=== PATIENT | female | born 1960 | race African-American/Black ===

== ENCOUNTER 2020-05-07 01:54 | Outpatient (CLI) | payer OTHER, SELFPAY ==
[2020-05-07 19:02] LABS: SARS-CoV-2 RNA PCR Negative
== END 2020-05-07 01:55 | disposition home or self-care (01) ==
LOC: ANHCOVIDDT 01:54
PROVIDERS: PCP Internal Medicine; Visit Provider Plastic Surgery
DX: Z01.812 Encounter for preprocedural laboratory examination (principal); Z20.828 Contact with and (suspected) exposure to other viral communicable diseases
CPT/HCPCS: 87635; C9803; U0003

== ENCOUNTER 2020-05-09 01:18 | Day surgery (SDC) | payer OTHER, SELFPAY ==
[2020-04-25 10:56] VITALS: BMI 28.1
--- NOTE | 2020-05-09 06:32 | WPDANESEPPF ---
Anes - Initial Pre Proc Eval Procedure: Operation Date: 05/09/20 07:30 Proposed Procedures p Excision Of Two Enlarged Lipomas Right Anterior Thigh - Gerardo Zapata MD Date/Time: 05/09/20 06:32 Surgeon: Gerardo Zapata MD Pre Op Diagnosis: Subcutaneous Mass x 2 Right Upper Thigh Patient Data Age: 60 Gender: F Height: 5 ft 2 in Weight: 69.85 kg Allergies Allergy/AdvReac Type Severity Reaction Status Date / Time No Known Allergies Allergy Verified 05/09/20 06:12 Home Medications Medication Instructions Recorded Confirmed Type amlodipine 10 mg PO DAILY 04/25/20 05/09/20 History diphenhydramine HCl [Allergy 25 mg PO HS 04/25/20 05/09/20 History (diphenhydramine)] hydrochlorothiazide 25 mg PO DAILY 04/25/20 05/09/20 History Patient hx anesthesia problems: none Family hx anesthesia problems: none PMFSH Past Medical History Medical History CVA (cerebral vascular accident) Hypertension Smoker Tobacco abuse Social History Social History Years smoked: 47 Smoking status: Current every day smoker Tobacco type: cigarettes Alcohol intake: current Drinks per week: 12 Anes - Eval Final PreProcedure Day of Procedure 05/09/20 06:32 Patient weight: overweight Heart: regular rate and rhythm Lungs: decreased breath sounds Airway: Mallampati scale class II Neurological: alert and oriented Last oral intake: >/= 8 hours ASA classification: III Emergent: no Anesthetic plan: proceed Anesthesia type and monitoring: general GIVS and standard monitoring Informed Consent: The patient's anesthetic plan and its attendant risks and benefits were discussed with the patient/family/POA. Questions were solicited and answers provided to the satisfaction of the patient/family/POA.
[2020-05-09] MEDS: LACTATED RINGERS 1,000 ML 30 ML IV CONT (06:43)
[2020-05-09 06:50] VITALS: BP 152/82; PULSE 80; RESP 16; TEMP 36.3; O2SAT 98
--- NOTE | 2020-05-09 07:03 | WPDHPUPDATE1 ---
History and Physical Update Update Date/Time: 05/09/20 07:03 History and Physical has been reviewed, including an updated exam of the patient. There are NO changes in the patient's condition. Risks, benefits, and alternatives have been discussed and questions answered. Patient agrees to proceed with procedure.
[2020-05-09] MEDS: LIDO 1%/EPINEPHRINE 1:100,000 20 ML VIAL INFILTRATE (07:28)
[2020-05-09 07:58] VITALS: BP 126/72; PULSE 73; RESP 15; O2SAT 94
--- NOTE | 2020-05-09 08:09 | SUR.PHASEII ---
0805; PT RESTING QUIETLY. DENIES PAIN.
--- NOTE | 2020-05-09 08:16 | PM.OP ---
Procedure Note - Brief Procedure Note - Brief Date of procedure: 05/09/20 Pre-op diagnosis: Subcutaneous Mass x 2 Right Upper Thigh Post-op diagnosis: same Procedure performed: Excision of lipoma right anterior thigh 9.0 cm with intermediate repair 4.0 cm. Excision of lipoma or right anterior medial thigh 4.0 cm with intermediate repair 3.0 cm. Anesthesia: MAC Surgeon: Gerardo Zapata MD Associate Professor Of Geography: Erika Shin Estimated blood loss (mL): 2 Tourniquet time (min): 0 Drains: No Packing: No Pathology: none sent Complications: No immediate complications Condition: stable Disposition: same day
--- NOTE | 2020-05-09 08:21 | P.OP_ITS ---
Procedure Note - Detailed Date of procedure: 05/09/20 Pre-op diagnosis: Subcutaneous Mass x 2 Right Upper Thigh Post-op diagnosis: same Procedure performed: Excision of 9 cm lipoma of the upper anterior thigh with intermediate repair 4 cm. Excision of 4 cm lipoma of the upper medial thigh with intermediate repair 3 cm Description of procedure: Lipomas were marked on the patient's thigh as she waited in the holding area. She was taken to the operating room placed supine on the operating table. A a time-out was held and confirmed. She was given IV sedation and the thigh was prepped and draped in the usual fashion. Markings were made over the dome of these for incision. Each was infiltrated widely with 1% lidocaine with epinephrine. The larger lipoma was removed 1st this involved incision directly over the top and dissection and to the deep subcutaneous tissue. The pale firm lipomatous tissue was identified and had several extensions. It was taken out by direct digital pressure and sharp dissection neither of these extended onto the deep fascia. The wounds were closed with intradermal 4-0 Monocryl suture and glue. Bandages were taped on and she was discharged from the operating room stable condition. She has instructions in care follow-up. A prescription for hydrocodone was sent to her pharmacy for 7.. Anesthesia: MAC Surgeon: Gerardo Zapata MD Seam [employer]ber: Erika Shin Estimated blood loss (mL): 2 Drains: No Packing: No Pathology: none sent Complications: No immediate complications Condition: stable Disposition: same day
[2020-05-09 08:30] VITALS: BP 119/69; PULSE 72; RESP 16; O2SAT 96
[2020-05-09 09:00] VITALS: BP 136/73; PULSE 68; RESP 16
--- NOTE | 2020-05-09 09:32 | SUR.PHASEII ---
0920; PT AWAKE AND ALERT. DENIES PAIN OR NAUSEA. STATES READY TO GO HOME. MEETS DISCHARGE CRITERIA
== END 2020-05-09 09:48 | disposition home or self-care (01) ==
PROVIDERS: PCP Internal Medicine; Visit Provider Plastic Surgery
PROC: (CPT 27327; principal; 2020-05-09 07:30)
DX: D17.23 Benign lipomatous neoplasm of skin and subcutaneous tissue of right leg (principal); I10 Essential (primary) hypertension; Z86.73 Personal history of transient ischemic attack (TIA), and cerebral infarction without residual deficits; F17.210 Nicotine dependence, cigarettes, uncomplicated
CPT/HCPCS: 27327; 27337; A9270; J2250; J2704; J3010; J7120

== ENCOUNTER 2024-10-31 09:49 | Outpatient (CLI) | payer MEDICARE, MEDICAID, SELFPAY ==
--- NOTE | ~2024-10-31 | CT_ITS ---
EXAMINATION: CT sinus wo con DATE: 10/31/2024 10:22 INDICATION: Chronic sinusitis TECHNIQUE: Computed tomography (CT) of the paranasal sinuses was performed without intravenous contra st. The dose-length product was 301.30 mGy-cm. Automated exposure control and iterative reconstructio n technique were employed. COMPARISON: None FINDINGS: There is mucosal thickening of the sphenoid, maxillary, ethmoid and frontal sinuses. No sig nificant mucoperiosteal reaction. Rightward nasal septal deviation. The ostiomeatal units are occlude d. Mastoids are poorly pneumatized. IMPRESSION: 1. Moderate pansinusitis. Reviewed, dictated and finalized at location B. IMPRESSION: 1. Moderate pansinusitis.
--- OUTSIDE RECORDS SUMMARY | 2024-10-31 10:34 | XMS_ITS | Data Portability ---
Author Organization DIANE MICAHLyly Toscano Address [address] [facility] [place] [address] Care Team Providers Care Belt Weaver Name Role Phone MAKENNA MILLS Primary Care Provider [phone] BENJI BACON [employer] Reducer Machine Assessment No assessment recorded. Plan of Treatment Reminders Order Date Submit Date Provider Last Modified By Organization Details Last Modified Time Details Appointments ANY 15 2024 03:00P M Jia Bonilla MD Not available Not available Not available Lab noninvasi ve colorecta l cancer DNA + occult blood screening , QL, stool 2023 024 [facility] (Cologuard Orders Only), [address], [address], [place], [address], 05/05/2024 20:55:27 CMP, serum or plasma 2023 024 [facility], [address], [address], [place], [address], 05/16/2024 11:24:11 CBC 2023 024 [facility], [address], [address], [place], [address], 05/16/2024 11:24:13 TSH, ultra-sen sitive, serum 2023 024 [facility], [address], [address], [place], [address], 05/16/2024 11:24:12 lipid panel, serum 2023 024 [facility], [address] [place] [address], [address], [place], [address], 05/16/2024 11:24:09 albumin/c reatinine , mass ratio, urine 2023 024 [facility], [address] [place] [address], [address], [place], [address], 05/16/2024 11:24:08 vitamin B12 + folate, serum or blood 2022 023 [facility], [address] [place] [address], [address], [place], [address], 02/03/2023 08:27:07 Referral None recorded. Procedures None recorded. Surgeries None recorded. Imaging MAMMO, screening , digital, bilateral 2023 024 [facility], [address] [place] [address] 162, [place], [address], 10/13/2024 11:02:35 Medication Orders omeprazol e 40 mg capsule,d elayed release 2023 024 [facility], [address] [place] [address], [id number], 04/17/2024 15:56:06 clotrimaz ole 1 % topical cream 2023 024 [facility], [address] [place] [address], [id number], 04/17/2024 15:50:59 gabapenti n 300 mg capsule 2023 024 [facility], [address] [place] [address], [id number], 08/09/2024 16:08:43 ibuprofen 800 mg tablet 2023 024 [facility], [address] [place] [address], [id number], 04/18/2024 11:04:15 amlodipin e 5 mg tablet 2023 024 [facility], [address] [place] [address], [id number], 08/09/2024 16:08:41 hydrochlo rothiazid e 25 mg tablet 2023 024 [facility], [address] [place] [address], [id number], 08/09/2024 16:08:42 ketorolac 10 mg tablet 2023 024 [facility], [address] [place] [address], [id number], 04/17/2024 14:25:20 ketoconaz ole 2 % topical cream 2023 024 [facility], [address] [place] [address], [id number], 04/17/2024 14:40:40 gabapenti n 300 mg capsule 2022 023 [facility], [address] [place] [address], [id number], 08/11/2023 15:33:05 Calcium 600 + D(3) 600 mg-5 mcg (200 unit) tablet 2022 023 [facility], [address] [place] [address], [id number], 04/17/2024 14:36:24 lidocaine 4 % topical cream 2022 023 [facility], [address] [place] [address], [id number], 04/17/2024 14:37:01 meloxicam 15 mg tablet 2022 023 [facility], [address] [place] [address], [id number], 04/17/2024 14:37:06 diclofena c 1 % topical gel 2022 023 [facility], [address] [place] [address], [id number], 04/17/2024 14:36:49 amlodipin e 5 mg tablet 2022 023 [facility], [address] [place] [address], [id number], 08/11/2023 15:33:24 hydrochlo rothiazid e 25 mg tablet 2022 023 [facility], [address] [place] [address], [id number], 08/11/2023 15:33:26 Patient TargetsNo targets recorded. Patient Instructions Encounter Date Encounter Id Patient Instructions Last Modified By Organization Details Last Modified Time 09/24/2022 [id number] A healthy lifestyle: care instructions [facility] Not available 09/24/2022 11:02:31 01/12/2023 [id number] Quitting Tobacco : Care Instructions [facility] Not available 01/12/2023 16:43:35 05/17/2023 [id number] deciding about using medicines to quit smoking [facility] Not available 05/17/2023 17:01:06 Quitting Tobacco : Care Instructions si Not available 05/17/2023 17:01:06 Acute Sinusitis: Care Instructions sieh Not available 05/17/2023 17:01:06 learning about high blood pressure si Not available 05/17/2023 17:01:06 08/18/2023 [id number] athlete's foot: care instructions si Not available 08/18/2023 18:08:43 04/17/2024 [id number] A healthy lifestyle: care instructions [facility] Not available 04/17/2024 15:25:09 Reason for Referral None Reported. Results Created Date Observation Date Name Description Value Unit Range Abnormal Flag Note LastModifiedBy Organization Detail LastModifiedTime 02/03/2002/03/2023 VITAM IN B12 AND FOLAT E vitamin B12 630 pg/mL 232-12 45 Not Available [facility] ([facility]) [address] [facility], [place], [address], 02/03/2023 08:27:07 02/03/20 23 02/03/2023 VITAM IN B12 AND FOLAT E folate (folic acid), serum 6.0 NG/mL >3.0 A serum folat e donal ntrat ion of less than 3.1 ng/mL is consi dered to repre sent clini palma defic iency . Not Available [facility] ([facility]) [address] [facility], [place], [address], 02/03/2023 08:27:07 04/30/20 24 04/30/2024 COLOG UARD cologuard result reportable NEGATI VE negati ve normal NEGAT ROSALIA TEST RESUL T. A negat rosalia Colog uard resul t indic ates a low likel ihood that a color ectal cance r (CRC) or advan patricio adeno ma (omid omato us polyp s with more advan patricio pre-m align ant featu res) is prese nt. The chanc e that a perso n with a negat rosalia Colog uard test has a color ectal cance r is less than 1 in 1500 (nega tive predi ctive value >99.9 %) or has an advan patricio adeno ma is less than 5.3% (nega tive predi ctive value 94.7% ). These data are based on a prosp ectiv e cross -sect ional study of 10,00 0 indiv idual s at [place] risk for color ectal cance r who were scree tee with both Colog uard and colon oscop y. (Les Marie al, N Engl J Med 2014; 370(1 4):12 86-12 97) The keysha l value (refe rence range ) for this assay is negat rosalia. COLOG UARD RE-SC REENI NG RECOM MENDA TION: Perio dic color ectal cance r scree jagdish is an impor tant part of preve ntive healt hcare for asymp tomat ic indiv idual s at [facility] risk for color ectal cance r. Follo wing a negat rosalia Colog uard resul t, the Ameri can Cance r Socie ty and U.S. Multi -Soci ety Task Force scree jagdish guide lines recom mend a Colog uard re-sc reetejal ng inter jennifer of 3 years . Refer ences : Ameri can Cance r Socie ty Guide line for Color ectal Cance r Scree jagdish: https ://alireza w.can cer.o rg/ca ncer/ colon -rect al-ca ncer/ detec tion- diagn osis- stagi ng/ac s-rec ommen datio ns.ht ml.; Grant BRODY, Christen FAGAN, Erika VALENCIA, Color ectal Cance r Scree jagdish: Recom menda tions for Physi cians and Patie nts from the U.S. Multi -Soci ety Task Force on Color ectal Cance r Scree jagdish , Am J Gastr oente rolog y 2017; 112:1 016-1 030. TEST DESCR IPTIO N: [place] site algor ithmi c ira sis of stool DNA-b iojulia kers with hemog lobin immun oassa y. Quant itati ve value s of indiv idual bioma rkers are not repor table and are not assoc iated with indiv idual bioma rker resul t refer ence range s. Colog uard is inten ded for color ectal cance r scree jagdish of adult s of eithe r sex, 45 years or older , who are at [facility] for color ectal cance r (CRC) . Colog uard has been appro karen for use by the U.S. FDA. The perfo rmanc e of Colog uard was estab lishe d in a cross secti onal study of [facility] adult s aged 50-84 . Colog uard perfo rmanc e in patie nts ages 45 to 49 years was estim ated by sub-g roup ira sis of near- age group s. Colon oscop ies perfo rmed for a posit rosalia resul t may find as the most clini dalton signi fican t lesio n: color ectal cance r [4.0% ], advan patricio adeno ma (incl uding sessi le darlin min polyp s great er than or equal to 1cm diame ter) [20%] or non- advan patricio adeno ma [31%] ; or no color ectal neopl randall [45%] . These estim ates are deriv ed from a prosp ectiv e cross -sect ional scree jagdish study of 0 indiv idual s at [facility] risk for color ectal cance r who were scree tee with both Colog uard and colon oscop y. (Les Marie al, N Engl J Med 2014; 370(1 4):12 86-12 97.) Colog uard may produ ce a false negat rosalia or false posit rosalia resul t (no color ectal cance r or preca ncero us polyp prese nt at colon oscop y follo w up). A negat rosalia Colog uard test resul t does not guara ntee the absen ce of CRC or advan patricio adeno ma (pre- cance r). The curre nt Colog uard scree jagdish inter jennifer is every 3 years . (Amer ican Cance r Socie ty and U.S. Multi -Soci ety Task Force ). Colog uard perfo rmanc e data in a 0 patie nt pivot al study using colon oscop y as the refer ence metho d can be acces sed at the follo wing locat ion: www.e xactl abs.c om/re jesus . Addit ional descr iptio n of the Colog uard test proce ss, warni ngs and preca ution s can be found at www.c adi hamd.c om. Not Available [facility] (Cologuard Orders Only) [address], [place], [address], 05/05/2024 20:55:27 05/15/2005/16/2024 ALBUM IN/CR EATIN INE RATIO ,URIN E creatinine, urine 215.1 mg/dL notest ab. Not Available [facility] ([facility]) [address] [facility], [place], [address], 05/16/2024 11:24:08 05/15/2005/16/2024 ALBUM IN/CR EATIN INE RATIO ,URIN E albumin, urine 13.4 ug/mL notest ab. Not Available [facility] ([facility]) [address] [facility], [place], [address], 05/16/2024 11:24:08 05/15/2005/16/2024 ALBUM IN/CR EATIN INE RATIO ,URIN E alb/creat ratio 6 mg/g_ creat 0-29 Keysha l: 0 - 29 Moder ately incre ased: 30 - 300 Sever myah incre ased: >300 Not Available [facility] ([facility]) [address] [place], [address], 05/16/2024 11:24:08 05/15/2005/16/2024 LIPID PANEL cholesterol, total 194 mg/dL 100-19 9 Not Available [facility] ([facility]) [address] [place], [address], 05/16/2024 11:24:09 05/15/2005/16/2024 LIPID PANEL triglyceride s 259 mg/dL 0-149 above high normal Not Available [facility] ([facility]) [address] [place], [address], 05/16/2024 11:24:09 05/15/2005/16/2024 LIPID PANEL HDL cholesterol 51 mg/dL >39 Not Available [facility]) [address] [place], [address], 05/16/2024 11:24:09 05/15/2005/16/2024 LIPID PANEL VLDL cholesterol palma 44 mg/dL 5-40 above high normal Not Available [facility] ([facility]) [address] [place], [address], 05/16/2024 11:24:09 05/15/20 24 05/16/2024 LIPID PANEL LDL chol calc ([facility]) 99 mg/dL 0-99 Not Available [facility]) [address] [place], [address], 05/16/2024 11:24:09 05/15/2005/16/2024 COMP. METAB OLIC PANEL (14) glucose 111 mg/dL 70-99 above high normal Not Available [facility] ([facility]) [address] [facility], [place], [address], 05/16/2024 11:24:11 05/15/2005/16/2024 COMP. METAB OLIC PANEL (14) BUN 12 mg/dL 8-27 Not Available [facility] ([facility]) [address] [place], [address], 05/16/2024 11:24:11 05/15/2005/16/2024 COMP. METAB OLIC PANEL (14) creatinine 0.70 mg/dL 0.57-1 .00 Not Available [facility] ([facility]) [address] [place], [address], 05/16/2024 11:24:11 05/15/2005/16/2024 COMP. METAB OLIC PANEL (14) eGFR 96 mL/mi n/1.7 3 >59 Not Available [facility] ([facility]) [address] [place], [address], 05/16/2024 11:24:11 05/15/20 24 05/16/2024 COMP. METAB OLIC PANEL (14) BUN/creatini ne ratio 17 12-28 Not Available [facility]) [address] [place], [address], 05/16/2024 11:24:11 05/15/2005/16/2024 COMP. METAB OLIC PANEL (14) sodium 143 mmol/ L 134-14 4 Not Available [facility] ([facility]) [address], [place], [address], 05/16/2024 11:24:11 05/15/2005/16/2024 COMP. METAB OLIC PANEL (14) potassium 4.0 mmol/ L 3.5-5. 2 Not Available [facility] ([facility]) [address], [place], [address], 05/16/2024 11:24:11 05/15/2005/16/2024 COMP. METAB OLIC PANEL (14) chloride 104 mmol/ L 96-106 Not Available [facility] ([facility]) [address], [place], [address], 05/16/2024 11:24:11 05/15/2005/16/2024 COMP. METAB OLIC PANEL (14) carbon dioxide, total 24 mmol/ L Not Available [facility] ([facility]) [address] [facility], [place], [address], 05/16/2024 11:24:11 05/15/2005/16/2024 COMP. METAB OLIC PANEL (14) calcium 10.1 mg/dL 8.7-10 .3 Not Available [facility] ([facility]) [address] [facility] [place] [facility] [place], [address], 05/16/2024 11:24:11 05/15/2005/16/2024 COMP. METAB OLIC PANEL (14) protein, total 7.4 g/dL 6.0-8. 5 Not Available [facility] ([facility]) [address] [facility] [place] [facility] [place], [address], 05/16/2024 11:24:11 05/15/2005/16/2024 COMP. METAB OLIC PANEL (14) albumin 4.1 g/dL 3.9-4. 9 Not Available [facility] ([facility]) [address] [facility], [place], [address], 05/16/2024 11:24:11 05/15/20 24 05/16/2024 COMP. METAB OLIC PANEL (14) globulin, total 3.3 g/dL 1.5-4. 5 Not Available [facility] ([facility]) [address] [facility], [place], [address], 05/16/2024 11:24:11 05/15/2005/16/2024 COMP. METAB OLIC PANEL (14) bilirubin, total 0.4 mg/dL 0.0-1. 2 Not Available [facility] ([facility]) [address] [facility], [place], [address], 05/16/2024 11:24:11 05/15/2005/16/2024 COMP. METAB OLIC PANEL (14) alkaline phosphatase 101 IU/L 44-121 Not Available [facility]) [address] [facility], [place], [address], 05/16/2024 11:24:11 05/15/2005/16/2024 COMP. METAB OLIC PANEL (14) AST (SGOT) 18 IU/L 0-40 Not Available [facility] ([facility]) [address] [facility], [place], [address], 05/16/2024 11:24:11 05/15/2005/16/2024 COMP. METAB OLIC PANEL (14) ALT (SGPT) 23 IU/L 0-32 Not Available [facility] ([facility]) [address] [facility], [place], [address], 05/16/2024 11:24:11 05/15/2005/16/2024 TSH RFX ON ABNOR MAL TO FREE T4 TSH 2.260 uIU/m L 0.450- 4.500 Not Available [facility] ([facility]) [address] [facility], [place], [address], 05/16/2024 11:24:12 05/15/2005/16/2024 CBC, PLATE LET, NO DIFFE RENTI AL WBC 6.3 x10e3 /uL 3.4-10 .8 Not Available [facility] ([facility]) [address] [facility], [place], [address], 05/16/2024 11:24:13 05/15/2005/16/2024 CBC, PLATE LET, NO DIFFE RENTI AL RBC 4.90 x10e6 /uL 3.77-5 .28 Not Available [facility] ([facility]) [address] [facility], [place], [address], 05/16/2024 11:24:13 05/15/2005/16/2024 CBC, PLATE LET, NO DIFFE RENTI AL hemoglobin 14.7 g/dL 11.1-1 5.9 Not Available [facility] ([facility]) [address] [facility], [place], [address], 05/16/2024 11:24:13 05/15/2005/16/2024 CBC, PLATE LET, NO DIFFE RENTI AL hematocrit 45.8 % 34.0-4 6.6 Not Available [facility] ([facility]) [address] [facility], [place], [address], 05/16/2024 11:24:13 05/15/2005/16/2024 CBC, PLATE LET, NO DIFFE RENTI AL MCV 94 fL 79-97 Not Available [facility] ([facility]) [address] [facility], [place], [address], 05/16/2024 11:24:13 10/28/20 24 05/16/2024 CBC, PLATE LET, NO DIFFE RENTI AL MCH 30.0 pg 26.6-3 3.0 Not Available [facility] ([facility]) [address] [facility], [place], [address], 05/16/2024 11:24:13 05/15/2005/16/2024 CBC, PLATE LET, NO DIFFE RENTI AL MCHC 32.1 g/dL 31.5-3 5.7 Not Available [facility] ([facility]) [address] [facility], [place], [address], 05/16/2024 11:24:13 05/15/2005/16/2024 CBC, PLATE LET, NO DIFFE RENTI AL RDW 13.8 % 11.7-1 5.4 Not Available [facility] ([facility]) [address] [facility], [place], [address], 05/16/2024 11:24:13 05/15/2005/16/2024 CBC, PLATE LET, NO DIFFE RENTI AL platelets 279 x10e3 /uL 150-45 0 Not Available [facility] ([facility]) [address] [facility], [place], [address], 05/16/2024 11:24:13 Result Notes None recorded. Problems Name Problem SNOMED Code Status Onset Date Resolution Date Notes Provider Name and Address Organization Details Recorded Time Degeneration of lumbar intervertebral disc 33993509 Active 2020 [facility] Attn: Ricky gann,[address] [place], [address], [place] [facility] 1 08:44:41 Essential hypertension 40429631 Active Makenna Mills MD Attn: Ricky gann,[address] [place], [address] [facility] 6 12:12:04 Chronic obstructive pulmonary disease 78974119 Active Makenna Mills MD Attn: Ricky gann,[address] [place], [address], [place] [facility] 6 12:12:04 Tobacco dependence syndrome 50599494 Active Makenna Mills MD Attn: Ricky gann,[address] [place], [address] [facility] 6 12:12:04 Tinea pedis 6789953 Active Dorothy Sauceda RN null, [place] [facility] 5 17:32:48 Alcoholism 3041296 Active Makenna Mills MD Attn: Ricky g,[address] [place], [address], [place] [facility] 6 12:12:04 Vitamin D deficiency 02774685 Active Makenna Mills MD Attn: Ricky gann,[address] [place], [address] [facility] 6 11:36:50 Menopausal and postmenopausal disorders 993175379 Active Makenna Mills MD Attn: Ricky gann,[address] [place], [address], [place] [facility] 5 16:19:20 Chronic sinusitis 79632303 Active Makenna Mills MD Attn: Ricky gann,[address] [place], [address] [facility] 6 11:36:50 Multiple lumps 253424905 Active Makenna Mills MD Attn: Ricky gann,[address] [place], [address], [place] [facility] 6 14:51:34 Acid reflux 003863865 Active Makenna Mills MD Attn: Ricky gann,[address] [place], [address] [facility] 6 12:12:04 Injury of shoulder region 583943842 Active Makenna Mills MD Attn: Ricky gann,[address] [place], [address], [place] [facility] 6 12:12:04 Problem Notes None recorded. Procedures Surgical History Date Name Laterality Status Provider Name and Address Organization Details Recorded Time 11/24/19 19 Intralesional Kenalog injection completed Amisha Barone [facility] 11/23/2018 11:48:53 Cholecystectomy completed aMssiel Fry MA [facility] 10/26/2019 09:14:13 Tubal Ligation completed Massiel Fry MA [facility] 10/26/2019 09:14:21 Imaging Results None recorded. Procedure Notes None recorded. Medical Equipment None Reported. Allergies No known drug allergies Medications Name Sig Start Date Stop Date Status Note LastModified by Organization Details LastModified Time Prescripti on - Renewal 10/07 completed Not Available Not Available Not Available losartan 50 mg tablet Take 1 tablet every day by oral route as directed for 30 days. 10/07 completed Not Available Not Available Not Available amoxicilli n 500 mg capsule 04/09 completed Not Available Not Available Not Available atorvastat in 40 mg tablet TAKE 1 TABLET BY MOUTH AT BEDTIME TO LOWER CHOLESTE ROL 08/16 completed Not Available Not Available Not Available prednisone 10 mg tablet 09/24 completed Not Available Not Available Not Available gabapentin 600 mg tablet Take 1 tablet 3 times a day by oral route as directed for 30 days. 10/21 completed Not Available Not Available Not Available cefuroxime axetil 250 mg tablet 04/09 completed Not Available Not Available Not Available ibuprofen 800 mg tablet TAKE ONE TABLET BY MOUTH THREE TIMES DAILY, MORNING, MIDDAY & IN THE EVENING WITH FOOD NEEDED FOR PAIN active Not Available Not Available No t Available hydrocodon e 5 mg-acetami nophen 325 mg tablet 09/24 completed Not Available Not Available Not Available meloxicam 15 mg tablet TAKE ONE TABLET BY MOUTH EVERY DAY AFTER A MEAL FOR PAIN 04/17 completed Not Available Not Available Not Available lidocaine 4 % topical cream Apply 1 applicat ion 4 times a day by topical route as directed for 30 days. 04/17 completed Not Available Not Available Not Available metronidaz ole 500 mg tablet TAKE ONE TABLET THREE TIMES DAILY AFTER MEALS FOR 5 DAYS 04/17 completed Not Available Not Available Not Available Aspir-Low 81 mg tablet,del ayed release TAKE 1 TABLET BY MOUTH ONCE DAILY 02/14 completed Not Available Not Available Not Available amlodipine 5 mg tablet TAKE ONE TABLET BY MOUTH EVERY MORNING FOR BLOOD PRESSURE 2024 active Not Available Not Available Not Avai lable ciprofloxa gume 500 mg tablet TAKE ONE TABLET TWICE DAILY AFTER MEALS FOR 5 DAYS 04/17 completed Not Available Not Available Not Available omeprazole 40 mg capsule,de layed release one capsule po q d prn 2023 active Not Available Not Available Not Avai lable triamcinol one acetonide 0.1 % topical cream APPLY A THIN LAYER TO THE AFFECTED AREA(S) BY TOPICAL ROUTE 2 TIMES PER DAY 10/07 completed Not Available Not Available Not Available amoxicilli n 500 mg tablet TAKE ONE TABLET BY MOUTH EVERY 8 HOURS FOR 10 DAYS 04/17 completed Not Available Not Available Not Available baclofen 20 mg tablet Take 1 tablet 4 times a day by oral route as needed for 30 days. 04/18 completed Not Available Not Available Not Available ketorolac 10 mg tablet TAKE ONE TABLET BY MOUTH EVERY 6 HOURS NEEDED FOR 5 DAYS 04/17 completed Not Available Not Available Not Available meloxicam 7.5 mg tablet Take 1 tablet every day by oral route as directed for 30 days. 10/21 completed Not Available Not Available Not Available terbinafin e HCl 250 mg tablet Take 1 tablet every day by oral route as directed for 30 days. 10/21 completed Not Available Not Available Not Available amoxicilli n 875 mg tablet 11/29 completed Not Available Not Available Not Available trazodone 100 mg tablet TAKE 1 TABLET(S ) NEEDED BY MOUTH AT BEDTIME TO AID SLEEP 10/21 completed Not Available Not Available Not Available dicyclomin e 20 mg tablet 08/16 completed Not Available Not Available Not Available baclofen 10 mg tablet TAKE 1 TABLET(S ) 3 TIMES A DAY BY MOUTH AFTER MEALS FOR MUSCLE SPASMS NEEDED. 10/21 completed Not Available Not Available Not Available triamcinol one acetonide 0.1 % topical ointment APPLY A THIN LAYER TO THE AFFECTED AREA(S) BY TOPICAL ROUTE 2 TIMES PER DAY 04/09 completed Not Available Not Available Not Available nystatin 100,000 unit/gram topical cream APPLY TO THE AFFECTED AREA(S) BY TOPICAL ROUTE 2 TIMES PER DAY for 90 days 04/17 completed Not Available Not Available Not Available ranitidine 150 mg tablet TAKE ONE TABLET TWICE A DAY BY MOUTH FOR STOMACH active Not Available Not Available No t Available hydrochlor othiazide 12.5 mg capsule TAKE 1 CAPSULE( S) EVERY DAY BY MOUTH 08/16 completed Not Available Not Available Not Available docusate sodium 100 mg capsule 04/09 completed Not Available Not Available Not Available gabapentin 300 mg capsule TAKE TWO CAPSULES BY MOUTH EVERY NIGHT AT BEDTIME FOR PAIN MANAGEME NT 2024 active Not Available Not Available Not Avai lable omeprazole 20 mg capsule,de layed release Take 1 capsule twice a day by oral route before meals for 30 days. 10/21 completed Not Available Not Available Not Available folic acid 1 mg tablet Take 1 tablet every day by oral route as directed for 90 days. 08/16 completed Not Available Not Available Not Available ranitidine 150 mg capsule Take 1 capsule twice a day by oral route for 30 days. 04/09 completed Not Available Not Available Not Available hydrochlor othiazide 25 mg tablet TAKE ONE TABLET BY MOUTH EVERY MORNING FOR FLUID RETENTIO N 2024 active Not Available Not Available Not Avai lable methylpred nisolone 4 mg tablets in a dose pack Use as directed on package 08/18 completed Not Available Not Available Not Available ketoconazo le 2 % topical cream APPLY TO THE AFFECTED AREA(S) DAILY 04/17 completed Not Available Not Available Not Available betamethas one dipropiona te 0.05 % topical ointment apply to feet and ankles BID x 2 weeks, stop x 2 weeks and use Vaseline . Repeat 04/18 completed Not Available Not Available Not Available fluticason e propionate 50 mcg/actuat ion nasal spray,susp ension SPRAY TWO PUFFS IN EACH NOSTRIL EVERY DAY NEEDED 04/17 completed Not Available Not Available Not Available clotrimazo le 1 % topical cream apply to affected area bid as needed 2023 active Not Available Not Available Not Avai lable naproxen 500 mg tablet TAKE ONE TABLET BY MOUTH TWICE DAILY WITH FOOD 09/24 completed Not Available Not Available Not Available amoxicilli n 875 mg-potassi um clavulanat e 125 mg tablet TAKE ONE TABLET EVERY TWELVE HOURS FOR 10 DAYS 08/18 completed Not Available Not Available Not Available Calcium 600 + D(3) 600 mg-5 mcg (200 unit) tablet Take 2 tablets every day by oral route as directed for 30 days. 04/17 completed Not Available Not Available Not Available Lipitor 02/14 completed One tablet taken at bedtime . Not Available Not Available Not Available calcium 600 mg (as carbonate) -vitamin D3 10 mcg (400 unit) tablet Take 2 tablets every day by oral route as directed for 30 days. 10/21 completed Not Available Not Available Not Available peg 3350 240 gram-elect rolytes 22.72 gram-6.72 g-5.84 g powdr for soln 04/09 completed Not Available Not Available Not Available diclofenac 1 % topical gel APPLY 2 GRAMS TO THE AFFECTED AREA(S) BY TOPICAL ROUTE 4 TIMES PER DAY 04/17 completed Not Available Not Available Not Available Rakel Allergy 60 mg tablet Take 1 tablet(s ) twice a day by oral route for 30 days. 04/09 completed Not Available Not Available Not Available Drysol 20 % topical solution Apply 1 applicat ion every day by topical route for 90 days. 08/16 completed Not Available Not Available Not Available Vitals Date Recorded Body height Body mass index (BMI) Body weight Heart rate Oxygen saturation Oxygen saturation in Arterial blood by Pulse oximetry Systolic blood pressure Diastolic blood pressure Provider Name and Address Organization Details Last Updated DateTime 3 160.02 cm 28.2 kg/m2 22853.6 2 g 63 /min 97 % 97 % 135 mm[Hg] 85 mm[Hg] Jenae Vu MA [place] - [facility] 3 10:13:17 Date Recorded Body height Body mass index (BMI) Body weight Oxygen saturation Oxygen saturation in Arterial blood by Pulse oximetry Heart rate Systolic blood pressure Diastolic blood pressure Provider Name and Address Organization Details Last Updated DateTime 3 160.02 cm 27.7 kg/m2 63884.8 5 g 96 % 96 % 73 /min 152 mm[Hg] 88 mm[Hg] ODELL Uriarte - [facility] 3 15:46:45 Date Recorded Body height Body mass index (BMI) Body weight Heart rate Oxygen saturation Oxygen saturation in Arterial blood by Pulse oximetry Systolic blood pressure Diastolic blood pressure Provider Name and Address Organization Details Last Updated DateTime 3 160.02 cm 27.6 kg/m2 18699.4 1 g 70 /min 98 % 98 % 138 mm[Hg] 78 mm[Hg] Kelly Oliva MA [facility] 3 15:07:40 Date Recorded Body height Body mass index (BMI) Body weight Oxygen saturation Oxygen saturation in Arterial blood by Pulse oximetry Heart rate Systolic blood pressure Diastolic blood pressure Provider Name and Address Organization Details Last Updated DateTime 4 160.02 cm 28.3 kg/m2 48537.7 8 g 97 % 97 % 76 /min 134 mm[Hg] 76 mm[Hg] Veronica Sawyer MA [facility] 4 17:00:02 Date Recorded Body height Body mass index (BMI) Body weight Oxygen saturation Oxygen saturation in Arterial blood by Pulse oximetry Heart rate Systolic blood pressure Diastolic blood pressure Provider Name and Address Organization Details Last Updated DateTime 4 160.02 cm 29.2 kg/m2 76430.7 4 g 98 % 98 % 74 /min 130 mm[Hg] 78 mm[Hg] Cecelia Eng MA [facility] 4 14:38:33 Social History Question Answer Notes LastModified by Organizat ion Details LastModified Time Tobacco Smoking Status Current Some Day Smoker Jenae Vu MA null, [place] - [facility] 01/12/2023 15:45:13 Are You Blind Or Do You Have Difficulty Seeing? No Information not available 08/18/2023 What Is Your Level Of Caffeine Consumption? None Information not available 08/18/2023 Are You Deaf Or Do You Have Serious Difficulty Hearing? No Information not available 08/18/2023 Do You Or Have You Ever Used E-cigarettes Or Vape? Never Used Electronic Cigarettes Information not available 10/26/2019 What Was The Date Of Your Most Recent Tobacco Screening? 04/17/2024 Information not available 04/17/2024 Do You Use Your Seat Belt Or Car Seat Routinely? Yes Information not available 08/18/2023 Do You Or Have You Ever Used Smokeless Tobacco? Never Used Smokeless Tobacco Information not available 10/26/2019 How Much Tobacco Do You Smoke? 1 PPW Information not available 10/26/2019 Has Tobacco Cessation Counseling Been Provided? Yes Information not available 04/17/2024 On What Date Was Tobacco Cessation Counseling Provided? 04/17/2024 Information not available 04/17/2024 How Many Years Have You Smoked Tobacco? 30 [email or web address] Information not available 11/21/2014 Sex: Female Functional Status Question Answer Note LastModified by Organization D etails LastModified Time Are you able to care for yourself? Yes Information n ot available 08/18/2023 Mental Status None recorded. Family History Relationship Description Onset Age of this Age Resolved Age Notes LastModified by Organization Details LastModified Time Father No current problems or disability [email or web address] Not available 10/25 09:13:21 Mother No current problems or disability [email or web address] Not available 10/25 09:13:21 Medical History No medical history recorded. Gynecological History Statement/Question Response Menses Monthly N Obstetrics History GPAL:G 0 P 0 0 0 0 Past Encounters Encounter ID Performer Location Encounter Start Date Encounter Closed Date Diagnosis/Indication Diagnosis SNOMED-CT Code Diagnosis ICD10 Code Diagnosis Note [id number] [facility] [address] [place] [address] [phone] 0 11/21/2014 15:58:30 11/22/2014 16:39:07 Essential hypertension 87087544 Chronic ob structive pulmonary disease 38609674 Tobacco de pendence syndrome 68880588 Postmenopausal state 47210790 Screening for malignant neoplasm of colon 232001368 Tinea pedis 7757461 [id number] MD Jody Dover (Adult Med) [address] [place] [address] [phone] 0 06/18/2015 15:48:25 06/18/2015 17:58:50 Chronic obstructive pulmonary disease 58152335 J44.9 Essential hypertension 43163910 I10 Tobacco de pendence syndrome 88832000 F17.290 Alcoholism 5613671 F10.2 0 Vitamin D deficiency 347 79889 E55.9 Menopausal and postmenopausal disorders 560256712 N95.9 [id number] Corina Loera is [facility] (Adult Med) [address] [place] [address] [id number] 0 10/24/2015 10:08:20 10/24/2015 17:11:30 Chronic sinusitis 95368230 J32.9 Chronic ob structive pulmonary disease 75236542 J44.9 Essential hypertension 42679077 I10 Vitamin D deficiency 347 19309 E55.9 Tobacco de pendence syndrome 02887827 F17.290 [id number] Corina Loera is [facility] (Adult Med) [address] [place] [address] [phone] 0 12/30/2015 14:30:49 12/30/2015 18:17:37 Multiple lumps 551571071 R22.9 Acid reflux 765640298 K2 1.9 Chronic ob structive pulmonary disease 77440903 J44.9 Tobacco de pendence syndrome 76963798 F17.290 [id number] Makenna Mills MD [facility] (Adult Med) [address] [place] [address] [phone] 0 02/14/2016 11:23:06 02/14/2016 18:00:17 Injury of shoulder region 283191718 S49.82XA Acid reflux 586141336 K2 1.9 Chronic ob structive pulmonary disease 53928517 J44.9 Alcoholism 6374919 F10.2 0 Essential hypertension 65478598 I10 Tobacco de pendence syndrome 38004822 F17.306 [id number] Makenna Mills MD [facility] (Adult Med) [address] [place] [address] [id number] 0 08/13/2016 14:20:15 08/14/2016 12:10:01 Shoulder pain 46656989 M25.512 Hip pain 12180388 M25.55 2 Insomnia 565773503 G47.0 0 Dry skin dermatitis 2600 01406 L85.3 [id number] MD Jody Dover (Adult Med) [address] [place] [address] [phone] 0 11/06/2016 15:26:17 11/06/2016 17:54:01 Hip pain 96211044 M25.552 Since her fall in February 2016. On medication as prescribed . she agreed the referral of blasting entry specialist . [id number] Makenna Mills MD [facility] (Adult Med) [address] [place] [address] [phone] 0 04/09/2017 15:48:37 04/12/2017 14:30:06 Tinea pedis 5393305 B35.3 Chronic and recurrent. Essential hypertension 70031093 I10 Low salt diet. Screening for malignant neoplasm of colon 690593932 Z12.11 Patient refuses. Administra tion of influenza vaccine 63326453 Z23 Patient refuses. [id number] [facility] [address] [place] [address] [id number] 0 10/07/2017 11:44:27 10/11/2017 11:30:47 Essential hypertension 06179876 I10 Low salt diet. Well controlled . Degenerati ve joint disease involving multiple joints 064326982 M15.9 Acid reflux 996524870 K2 1.9 Seasonal allergy 5248357 04 J30.2 Dysphagia 79704454 R13.1 0 Intermitte nt. No weight loss, no fever, no hematemesi s. Chronic ob structive pulmonary disease 26944918 J44.9 Nicotine dependence 5629 4008 F17.200 She has no intention to quit. Chronic sinusitis 410980 00 J32.9 [id number] [facility] [address] [place] [address] [phone] 0 12/14/2017 17:07:41 12/14/2017 17:51:25 Transient cerebral ischemia 530357407 G45.9 Chronic ob structive pulmonary disease 66128676 J44.9 Nicotine dependence 5629 4008 F17.200 She has no intention to quit. [id number] [facility] [address] [place] [address] [phone] 0 04/20/2018 10:45:23 04/21/2018 16:08:07 Purpuric rash 530444828 D69.2 Recurrent , on the right foot, every summer, itching anf burning. Screening mammography 24 326457 Z12.31 Screening for malignant neoplasm of colon 162009112 Z12.11 [id number] Amisha Barone [facility] jay FP ([address]) [address] [place] [address] 11/23/2018 11:19:31 11/24/2018 09:04:52 Granuloma annulare 75418300 L92.0 vs Nummular Dermatitis [id number] MD Jody Dover (Adult Med) [address] [place] [address] [phone] 11/29/2018 10:14:08 11/30/2018 09:05:12 Acute pharyngitis 131454567 J02.9 Being treated with proper antibiotic s, resolving. Neck sprain 003267832 S1 3.9XXA Better, resolving. Granuloma annulare 84537 009 L92.0 Under the care of her podiatry. Screening mammography 24 687743 Z12.31 [id number] MD Jody Dover (Adult Med) [address] [place] [address] [phone] 0 02/14/2019 11:56:45 02/14/2019 15:17:17 Secondary peripheral neuropathy 434361 G63 Random blood sugar is 100 mgh%. [id number] MD Jody Dover (Adult Med) [address] [place] [address] [phone] 0 05/03/2019 16:47:22 05/04/2019 11:48:15 Chronic rhinitis 87393994 J31.0 controllab le by spray. [id number] VICKY BRUNO DPM [facility] [address] [phone] 05/17/2019 10:57:37 05/18/2019 14:12:59 Tinea pedis 8464389 B35.3 Onychomycosis 540098735 B35.1 Foot pain 94695238 M79.6 72 M79.311 [id number] MD Jody Dover (Adult Med) [address] [place] [address] [id number] 0 08/16/2019 16:51:23 08/17/2019 08:57:16 Pain of right shoulder joint 4623293108 2959362 M25.511 Discussed with patient. Pain in fi nger of right hand 4555749013 08196 M79.644 Discussed with patient. Acid reflux 319389500 K2 1.9 Chronic ob structive pulmonary disease 62458087 J44.9 Essential hypertension 77729864 I10 Low salt diet. Well controlled . Insomnia 524406994 G47.0 0 take pill at night /day. Nicotine dependence 5629 4008 F17.200 She has no intention to quit. [id number] CARLINE HILL (Adult Med) [address] [place] [address] [phone] 0 10/26/2019 09:08:19 10/27/2019 14:24:48 Tinea pedis 1811116 B35.3 Hx of tinea pedisShe has seen both dermatolog y and podiatry for this issue last year, was treated with steroid and fungal creams at that time. Patient states she saw some improvemen t with creams but did not go away completely . Now she feels like the rash is spreading to her lower legs, it looks like ringworm . She is requesting oral medication to help treat rash.- encouraged her to come to office tomorrow for blood work and visit with me so I can see rash before trying to treat Onychomycosis 673480549 B35.1 Hx of onychomyco sisPatient denies thickened and discolored toenails on the phone today- encouraged her to come to office tomorrow for blood work and visit with me so I can see rash before trying to treat- will check blood work to make sure she is not diabetic and check her liver function before starting her on oral anti-funga l medication if needed Adult [facility] th examination 824205155 Z00.00 - will check blood work Folic acid deficiency 19 7358709 E53.8 Hx of folate def.- will recheck levels since completing blood work [id number] CARLINE [facility] (Adult Med) [address] [place] [address] [phone] 0 10/27/2019 09:45:27 10/27/2019 14:47:30 Tinea pedis 3113548 B35.3 Hx of tinea pedisShe has seen both dermatolog y and podiatry for this issue last year, was treated with steroid and fungal creams at that time. Patient states she saw some improvemen t with creams but did not go away completely . Now she feels like the rash is spreading to her lower legs, it looks like ringworm . She is requesting oral medication to help treat rash.On PE: 2 annular, hyperpigme nted lesions on the dorsal aspect of R foot. Mild scales present.Ap pears to be tinea corporis- will get blood work- if normal liver function, will start oral medication Onychomycosis 382372949 B35.1 Hx of onychomyco sisPatient denies thickened and discolored toenails on the phone todayOn PE: R 5th digit with thickened and discolored toenail- will get blood work - if normal liver function, will start oral medication Adult heal th examination 398410949 Z00.00 Pt. here for bloodwork today, she is fasting Folic acid deficiency 19 8967612 E53.8 Hx of folate def.- will recheck levels since completing blood work [id number] MD Jody Dover (Adult Med) [address] [place] [address] [id number] 0 12/13/2019 14:26:42 12/14/2019 19:52:09 Change in skin lesion 827927759 L98.9 Has pre-exstin g lesion, saw plastic surgeon, but getting change and spreading, wanting to be -re-evalua ting again. [id number] MD Jody Dover (Adult Med) [address] [place] [address] [id number] 0 02/15/2020 10:41:54 02/16/2020 08:23:25 Lumbar radiculopathy 785831807 M54.16 Discussed with patient, will try PT, and medication s for about 8 weeks before considerin g CT/MRI scan. Pain of le ft hip joint 5120896784 15753 M25.552 Discussed with patient, she agreed for the xray , PT and medication s as ordered. [id number] MD Jody Dover (Adult Med) [address] [place] [address] [phone] 0 07/24/2020 08:27:02 07/25/2020 09:45:57 Bilateral shoulder joint pain 9891315979 7634103 M25.511 M25.512 Prefers chiropract or referral than PT, will refill baclofen, meloxicam, , calcium with vitamin D and gabapentin . [id number] Makenna Mills MD [facility] (Adult Med) [address] [place] [address] [phone] 0 10/21/2020 08:18:13 10/22/2020 13:58:30 Acid reflux 297862341 K21.9 Stable. Chronic ob structive pulmonary disease 68894719 J44.9 Stable. Essential hypertension 05679761 I10 Low salt diet. Well controlled . On HCTZ and amlodipine . Injury of shoulder region 475058999 S49.82XA sHE AGREED FOR THE X RAY OF RIGHT SHOULDERS AND PRTHOIPEDI C REFERRAL. Menopausal and postmenopausal disorders 578336412 N95.9 Under the care of her gynecologi st. Vitamin D deficiency 347 66022 E55.9 On calcium with vitamin D. Tobacco de pendence syndrome 04467130 F17.290 Urged her to quit cigarettes smoking. [id number] CARLINE HILL [facility] (Adult Med) [address] [place] [address] [phone] 0 11/25/2020 13:56:48 11/26/2020 13:08:26 Screening for malignant neoplasm of breast 482801627 Z12.39 Last mammogram 2015 Declined CBE today in the office -Order sent for screening mammogram, she is aware she needs to call and schedule appointmen t Gynecologi c examination 41206435 Z01.419 60 y/o female with last pap many years ago. Denies hx of abnormal pap - Pap and pelvic exam completed today - Check Nuswab Pruritus of vulva 035341 00 L29.2 Pt wth intermitte nt moderate vulvar itching over the right labia majora x1 month occurring about once weekly. Has tried alcohol which made the area burn, Vaseline that was soothing, also tried oral benadryl to improve itching.No prior history. She is post-menop ausal- last period ~3 years ago. Not currently sexually active. Denies recent medication changes or recent abx use. Denies vaginal discharge, dysuria, abd pain. PE: normal appearing external genitalia, normal appearing cervix and vaginal canal. DDX: vaginal atrophy, yeast infection, contact dermatitis - Advised that she may try OTC Benadryl cream - Offered option to try prescripti on cream - she would like to try Benadryl cream first - Nuswab today to r/o yeast, BV [id number] CARLINE [facility] (Adult Med) [address] [place] [address] 01/14/2021 12:18:37 01/14/2021 20:50:21 Lumbar radiculopathy 320727457 M54.16 Also complainin g of R posterior hip pain and radiation down the front of her thigh to her knee. The pain is intermitte nt.She saw Dr. Mills for this issue in the past, never completed xray of lumbar spine due to COVID.She ran out of the meloxicam medication , this provided moderate benefit. - get xray completed, sounds like possible radiculopa thy- continue with meloxicam PRN Granuloma annulare 34495 009 L92.0 Patient presents to clinic complainin g of rash to the dorsal aspect of her R foot x 5 years. The rash appears every summer.She was seen by dermatolog y, Amisha Barone, and was told of possible inflammato ry skin reaction. They did several steroid shots, she states that things got a little better temporaril y plus a topical steroid medication . The steroid also made her skin become white in the area.She also saw podiatry who prescribed anti-funga l medication for tinea pedis, patient thinks those medication s provided her benefit too.The area causes a burning pain currently but no pruritis. She is using Vaseline at home to keep well moisturize d. Patient denies any trauma to the area.GA vs Nummular Dermatitis (per dermatolog y notes)- will refill topical steroid and clotrimazo le medication , do not use topical steroid for more than 1-2 weeks at a time- explained if fungal, it is common for fungal infections to reappear during summer months on the skin due to heat- f/u with dermatolog y and/or PCP if medication does not help Overweight 895008157 E66 .3 Advised decreased portion sizes, good food choices, limited eating out or fast food and eliminate soda and juice from diet. Advised physical activity daily and offered encouragem ent to continue with positive changes made so far. Depression screening 171 188179 Z13.31 PHQ 2/9 was negative in office today (4 out of 27) [id number] Makenna Mills MD [facility] (Adult Med) [address] [place] [address] [phone] 0 04/18/2021 14:51:21 04/21/2021 12:22:26 Tinea pedis 0748743 B35.3 Chronic and recurrent. Vitamin D deficiency 347 94895 E55.9 On calcium with vitamin D. Essential hypertension 13913028 I10 Low salt diet. Well controlled . On HCTZ and amlodipine . BP is 130/72 mm HG. today 04-18-2021 . On amlodipine and HCTZ. Degenerati on of lumbar intervertebral disc 10573256 M51.36 On calcium , and diclofenac topical gel. Chronic ob structive pulmonary disease 14643104 J44.9 Stable. Alcoholism 2417627 F10.2 0 weekend beer drinker. advised her to cut down the consumptio n. [id number] Makenna Mills MD [facility] (Adult Med) [address] [place] [address] [phone] 0 07/22/2021 15:55:01 07/23/2021 11:19:34 Degenerative joint disease involving multiple joints 836015183 M15.9 On meloxicam, but not strong enough to relieve the joints pain. Will add lidocaine cream, she agreed,. Smoker 20702342 F17.200 Advised her to quit smoking for the good health and financial reasons. Screening mammography 24 120723 Z12.31 Agreed for annual mammogram screening. Just had PAP smear done in recent years. [id number] Makenna Mills MD [facility] (Adult Med) [address] [place] [address] [phone] 0 02/20/2022 10:12:16 02/23/2022 10:31:06 Acid reflux 097343270 K21.9 Stable. Chronic ob structive pulmonary disease 79171495 J44.9 Stable. Degenerati on of lumbar intervertebral disc 48637518 M51.36 On calcium , and diclofenac topical gel. Tinea pedis 5266112 B35. 3 Chronic and recurrent. Tobacco de pendence syndrome 68442358 F17.290 Urged her to quit cigarettes smoking. Vitamin D deficiency 347 45315 E55.9 On calcium with vitamin D. Lumbar radiculopathy 128 790825 M54.16 Discussed with patient, will try PT, and medication s for about 8 weeks before considerin g CT/MRI scan. Bilateral shoulder joint pain 4837157623 6054751 M25.511 M25.512 Prefers chiropract or referral than PT, will refill baclofen, meloxicam, , calcium with vitamin D and gabapentin she is not takes this, so far , all current medication s are not working, she agreed for the orthopedic referral and add some medication s for the mean time. Has done with PT. 10-21-2020 . Degenerati ve joint disease involving multiple joints 897767223 M15.9 On meloxicam, but not strong enough to relieve the joints pain. Will add lidocaine cream, she agreed,. Hypertensive disorder 38 429496 I10 As 02-20-2022, her blood pressure is 120/60. [id number] Makenna Mills MD [facility] (Adult Med) [address] [place] [address] [phone] 0 09/24/2022 09:59:08 09/29/2022 17:42:13 Overweight 057308156 E66.3 BMI is 28.2, as 09-24-22. diet exercise and keep the weight down. Pain of ri ght shoulder joint 4991899144 2627146 M25.511 Discussed with patient. she refused to be referred to orthopedic , will add calcium and topical cream. Hypertensive disorder 38 543811 I10 As 02-20-2022, her blood pressure is 120/60. Lumbar radiculopathy 128 M54.16 Discussed with patient, will try PT, and medication s for about 8 weeks before considerin g CT/MRI scan. Bilateral shoulder joint pain 8254124955 3798465 M25.511 M25.512 Prefers chiropract or referral than PT, will refill baclofen, meloxicam, , calcium with vitamin D and gabapentin she is not takes this, so far , all current medication s are not working, she agreed for the orthopedic referral and add some medication s for the mean time. Has done with PT. 10-21-2020 . Degenerati ve joint disease involving multiple joints 071369392 M15.9 On meloxicam, but not strong enough to relieve the joints pain. Will add lidocaine cream, she agreed,. Statin declined 81832403 0 Z53.20 Refused 09-24-22. [id number] MD Jody Dover (Adult Med) [address] [place] [address] [phone] 0 01/12/2023 15:37:47 01/13/2023 14:48:28 Lumbar radiculopathy 237465620 M54.16 Discussed with patient, will try PT, and medication s for about 8 weeks before considerin g CT/MRI scan. Paresthesi a of lower extremity 605372114 R20.2 She agreed for the test. after her younger brother 's service. He from heart attack. Smoker 73345332 F17.200 Advised her to quit smoking for the good health and financial reasons. She is aware of cigarettes smoking can cause permanet emphysema, or cancer of lung, mouth or throat and other diseases. Hypertensive disorder 38 696203 I10 As 02-20-2022, her blood pressure is 120/60. As 01-12-23, she is up set aBOUT THE OF HER YOUNGER BROTHER. HAS ENOUGH MED REFILLED. [id number] Makenna Mills MD [place] [facility] (Adult Med) [address] [place] [id number] 05/17/2023 14:53:51 05/18/2023 14:58:59 Degeneration of lumbar intervertebral disc [id number] M51.36 On calcium , and diclofenac topical gel. Essential hypertension [id number] I10 Low salt diet. Well controlled . On HCTZ and amlodipine . BP is 130/72 mm HG. today 04-18-2021 . On amlodipine and HCTZ. BP is 138/78 today 05-17-23. Tobacco de pendence syndrome 52277992 F17.290 Urged her to quit cigarettes smoking. e is aware of cigarettes smoking can cause permanent emphysema, cancer of lung. or throat or mouth and other disease. Vitamin D deficiency 347 64970 E55.9 On calcium with vitamin D. Acute sinusitis 90336022 J01.90 On amoxicilli n , will see a ENT specialist on 05-19-23. [id number] Makenna Mills MD [facility] (Adult Med) [address] [place] [address] [place] [address] 08/18/2023 16:44:23 08/19/2023 12:38:39 Chronic sciatica [id number] M54.31 Med refills. Tinea pedis 7079293 B35. 3 Chronic and recurrent. [id number] MD [facility] (Adult Med) [address] [place] [address] 04/17/2024 14:11:17 04/18/2024 11:27:15 Body mass index 25-29 - overweight [id number] Z68.28 Eruption [id number] R21 Rash on right outer ankle and foot that has been responding to anti-funga l cream. Can continue cream as needed. If does not respond to cream she will let me know. Screening for malignant neoplasm of breast [id number] Z12.39 Due for screening mammmogram . Essential hypertension 55386625 I10 Blood pressure controlled . Can continue present medication . Will return for fasting blood work including lipid, TSH, and urine. Toothache 62343264 K08.8 9 Has toothache. No evidence of abscess. Has appointmen t with dentist May 03. Using occasional Ibuprofen for pain. Blood pressure controlled . Can continue until appointmen t. Right side sciatica [id number] 89831 M54.31 Right sided sciatica. Does not have symptoms as long as she is taking Gabapentin 600 mg hs. No numbness, weakness, or loss of urine or stool continence . Will let me know if any change in symptoms. Screening for malignant neoplasm of colon [id number] Z12.11 Had colonoscop y in 2014. Was limited due to incomplete emptying. Had follow up barium enima which was normal. Would prefer not to do another colonoscop y. Will proceed with cologuard. Acid reflux 145269105 K2 1.9 Well controlled with diet. Takes medication as needed which is rarely. Nicotine user 132962199 Z72.0 Smokes infrequent ly. Understand needs to quit. Will discuss further at follow up. Health Concerns Section Related Observation LastModified by Organization Lázaro ls LastModified Time None Recorded Concern Status LastModified by Organization Details LastModified Time None Recorded Advance Directives Directive None Recorded Payers Encounter Date Sequence Insurance Name Policy Number Policy Blair Covered Member ID Blair Member ID Guarantor Name 09/24/2022 1 [facility] ON OR AFTER 01/16/21 (MEDICAID REPLACEMENT - HMO) Merla Chavez [id number] Merla Chavez 01/12/2023 1 [facility] ON OR AFTER 01/16/21 (MEDICAID REPLACEMENT - HMO) Merla Chavez [id number] Merla Chavez 05/17/2023 1 [facility] - DOS ON OR AFTER 21 (MEDICAID REPLACEMENT - HMO) Merla Chavez [id number] Merla Chavez 08/18/2023 1 [facility] - DOS ON OR AFTER 21 (MEDICAID REPLACEMENT - HMO) Merla Chavez [id number] Merla Chavez 04/17/2024 2 [place] WHEN [place]ARE OR MEDICARE REPLACEMENT PRIMARY) Merla Chavez [id number] Merla Chavez 04/17/2024 2 [place] Merla Chavez [id number] Merla Chavez Notes Date Note Type Note Provider Name and Address Organization Details Recorded Time 09/24/2022 text/html Office visit. NKDA. has chronic right shoulder pain , on meloxicam , and omeprazole for acid reflux. 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 Still smokes. wonder if she need s to increase dose of meloxicam. Makenna Mills MD Attn: [address] [place], [address], [facility] 09/24/2022 11:04:22 01/12/2023 text/html Office visit, NKDA. history of copd, smoker, C/C numbness of both fet. for a while. social drinker. also right lower back pain with radiating to the right leg. Makenna Mlils MD Attn: [address] [place], [address], [facility] 01/12/2023 17:03:19 05/17/2023 text/html Office visit, NKDA. she supposes to Have 6 weeks PT , but has 90 Y/O demented mother, needs 24/7 care, She has no time to do PT yet, social smoker, Makenna Mills MD Attn: [address] , [place], [address], [facility] 05/17/2023 17:01:28 08/18/2023 text/html Office visit, NKDA. C/C right sciatica. on gabapentin at night and wants to refill cream for her recurrent skin rash on the right foot. No chest pain, no shortness of breath, no fever, regular appetite and bowel habit. ROS as noted in HPI. Makenna Mills MD Attn: [address], [place], [address], [facility] 08/18/2023 18:09:03 04/17/2024 text/html here for follow, due for mammogram, had colonoscopy at [facility] but doesn't remember when, may be due, has dental appointment May 03, has pain right lower tooth, Ibuprofen once a day helps, has a bad tooth, doesn't chew on that side, pain is in the gum, takes medicine for hypertension, has sciatica, gabapentin controls that pain, if don't take gabapentin has pain down right leg to back of knee, no weakness, no numbness, has a rash on right foot and ankle that comes every summer, 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
--- OUTSIDE RECORDS SUMMARY | 2024-10-31 10:34 | XMS_ITS | CONTINUITY OF CARE DOCUMENT ---
Author Name mainor hayward Address Unknown Organization [facility] Address [address] [place] [address] Phone [phone] Care Team Providers Care Coat Maker Name Role Phone Kamran Granados MD Unavailable [phone] Kamran Granados MD Unavailable AGNELES MILLS MD Unavailable [phone] PROBLEMS Condition Status Date Provider Notes Family History of CVA or Stroke: active Jade Granados MD Family History of Hypertension: active Daniela Granados MD Chest pain, atypical active Kamran Granados MD Abnormal EKG active Kamran Granados MD HTN essential active Kamran Granados MD ENCOUNTERS Date Type Provider Location Encounter Diag nosis - In-person encounter Office Visit Kamran Granados MD [place] [facility] - In-person encounter Office Visit Kamran Granados MD [place] [facility] Family History of CVA or Stroke:Family History of Hypertension:Chest pain, atypicalAbnormal EKGHTN essential VITAL SIGNS Date Observation Value Provider Body Mass Index (Ratio) 28.16 kg/m2 Daniela Granados MD blood pressure, diastolic 76 mm[Hg] Sa ra Chan blood pressure, systolic 118 mm[Hg] Kevin a Rocio oxygen saturation, oximetry 98 % Lillie Chan respiratory rate E&M 18 /min Lillie Si ms pulse rate 78 /min Lillie Chan blood pressure, cuff size regular Sa ra Chan weight E&M 154 [lb_av] Lillie Chan height E&M 62 [in_i] Lillie Chan Body Mass Index (Ratio) 29.81 kg/m2 Daniela Granados MD blood pressure, diastolic 83 mm[Hg] Li nkLog blood pressure, systolic 145 mm[Hg] Nora Josemanuelmargaret blood pressure, diastolic 83 mm[Hg] Rh jorge Jia blood pressure, systolic 145 mm[Hg] Tal Ro oxygen saturation, oximetry 97 % Neisha Ro pulse rate 67 /min Neisha Ro respiratory rate E&M 16 /min Neisha Ro blood pressure, cuff size regular jorge Ro blood pressure, resting Yes Kelsey Johnston height E&M 62 [in_i] Neisha Ro weight E&M 163 [lb_av] Neisha Ro ALLERGIES No Known Drug Allergies HISTORY OF MEDICATION USE Medication Status Instructions Dates Provider Indications Com ments omeprazole 40 mg capsule,delayed release(DR/EC) active Lillie Chan meloxicam 15 mg tablet active Lillie Chan Nexium 40 mg capsule,delayed release(DR/EC) completed Take 1 capsule by mouth once a day - Kamran Granados MD amlodipine 5 mg tablet active Take 1 ta blet by mouth once a day Kamran Grnaados MD hydrochlorothiazide 25 mg tablet active TAKE 1 TABLET DAILY Kamran Granados MD SOCIAL HISTORY Date Observation Value Provider drug use no Kamran Granados MD alcohol use, average drinks per day <1 Kamran Granados MD alcohol use yes Kamran Granados MD social history reviewed E&M revi ewed - no changes required Kamran Granados MD social history E&M S moking History: P atient currently smokes every day. P atient has been counseled to quit. Kamran Granados MD smoking/tobacco cess ation, patient education and counseling yes Kamran Granados MD smoking status Current every day smoker Beronica Granados MD drug use no Kamran Granados MD alcohol use, average drinks per day <1 Kamran Granados MD alcohol use yes Kamran Granados MD social history E&M S moking History: P atient currently smokes every day. P atient has been counseled to quit. Kamran Granados MD social history reviewed E&M revi ewed - no changes required Kamran Granados MD smoking/tobacco cess ation, patient education and counseling yes Kamran Granados MD smoking status Current every day smoker Beronica Granados MD FAMILY HISTORY Family Member Condition Mother Family History of Hy pertension: Mother Family History of CV A or Stroke: INSURANCE PROVIDERS Payer name Policy type / Coverage type [facility] [place] MEDICAID (2) Medicaid [id number] ADVANCE DIRECTIVES Name Date DISCUSSED - NO DECISION MADE TREATMENT PLAN Date Name Performer [id number],C,We will do a routine stress test. Kamran Granados MD [id number],C, B P today: 118/76 P rior BP: 145/83 (04/28/2021) Kamran Granados MD [id number],C, B P today: 145/83 Kamran Granados MD [id number],S, Kamran Granados MD [id number],C,w ith abnormal ekg which shows t wave inversion for over a year, and negative trop will get a stress thsllium sand an echo w ill also put her on nexium generic x 30 months Kamran Grandaos MD Cardiology:We will do a routine stress test. Kamran Granados MD Cardiology: B P today: 118/76 P rior BP: 145/83 (04/28/2021) Kamran Granados MD Cardiology: B P today: 145/83 Kamran Granados MD Cardiology Kamran Granados MD Cardiology:with abno rmal ekg which shows t wave inversion for over a year, and negative trop will get a stress thsllium sand an echo w ill also put her on nexium generic x 30 months Kamran Granados MD Date Name Stress Routine Stress Exercise Card iolite Complete Echo HISTORY OF PROCEDURES Procedure Date Procedure Name Provider Procedure Notes S tatus EKG Kamran Granados MD completed
--- OUTSIDE RECORDS SUMMARY | 2024-10-31 10:34 | XMS_ITS | Clinical Summary ---
Author Organization [facility] Address [address] [place] [address] Care Team Providers Care [employer] Division Manager Name Role Phone Makenna Gaspar MD Primary Care Provider [phone] Source Comments [facility] [employer]non-owned Affiliates and Associated Physician Practices is amultiple site organization consisting of ambulatory clinics and hospital sitesin [place], [place], [place] and [place]. This disclosure is being madepursuant to the Care Everywhere program and may not contain all information available regarding this patient. Last updated 18.[facility] [employer] Allergies No known active allergies Medications * Be aware that medications may not be up to date on this document. Alwaysverify current medications with the patient. HYDROCHLOROTHIA ZIDE PO Active aspirin (ASPIRIN) 81 MG chew tablet Take 1 tablet by mouth once daily 100 tablet 3 11/17/2017 Active atorvastatin (LIPITOR) 40 MG tablet Take 1 tablet by mouth at bedtime 30 tablet 4 11/17/2017 Active amLODIPine (NORVASC) 5 MG tablet Take 1 tablet by mouth once daily 30 tablet 3 03/03/2018 Active Active Problems Problem Noted Date Diagnosed Date Cerebrovascular accident (CVA) 11/14/2017 Social History Tobacco Use Types Packs/Day Years Used Date Smoking Tobacco: Some Days Cigarettes Smokeless Tobacco: Never Alcohol Use Standard Drinks/Week Comments Yes 2 (1 standard drink = 0.6 oz pur e alcohol) Comments No Sex and Gender Information Value Date Recorded Sex Assigned at Not on file 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 Gender Identity Not on file Sexual Orientation Not on file Last Filed Vital Signs Vital Sign Reading Time Taken Comments Blood Pressure 130/85 03/03/2018 11:25 AM CDT Pulse 71 03/03/2018 11:25 AM CDT Temperature 36.6 C (97.9 F) 11/15/2017 3:53 PM CDT Respiratory Rate 18 11/15/2017 3:53 PM CDT Oxygen Saturation 97% 03/03/2018 11:25 AM CDT Inhaled Oxygen Concentration - - Weight 72.6 kg (160 lb) 03/03/2018 11:25 AM CDT Height 157.5 cm (5' 2 ) 03/03/2018 11:25 AM CDT Body Mass Index 29.26 03/03/2018 11:25 AM CDT Plan of Treatment Health Maintenance Due Date Last Done Comments BONE DENSITY TESTING 1959 COLOGUARD (AGES 45-75) - COL ON CA SCREENING 1959 COLON MONITORING 1959 COLONOSCOPY - COLON CA SCREENING 1959 CT COLONOGRAPHY - COLON CA SCREENING 1959 Colorectal Cancer Screening 1959 FIT - COLON CA SCREENING 1959 FLEX SIG - COLON CA SCREENING 1959 MAMMOGRAM 1959 HIV SCREENING 1974 HEPATITIS C SCREENING 03/16/1977 DTAP/TDAP/TD VACCINES (1 - Tdap) 1978 PNEUMOCOCCAL VACCINE 50+ (1 of 1 - PCV) 2009 ZOSTER VACCINE (1 of 2) 2009 SCREENING FOR DIABETES 11/15/2020 8, 11/14/2017 COVID-19 VACCINE ( - 2023-2 5 season) 2024 DEPRESSION SCREENING 07/19/2024 INFLUENZA VACCINE (Season Ended) 2025 Respiratory Syncytial Virus (RSV) Vaccine Pt: or over 60 yrs (1 - 1-dose 75+ series) 2034 HEPATITIS B VACCINE Aged Out No longe r eligible based on patient's age to complete this topic HIB VACCINE Aged Out No longer eligi ble based on patient's age to complete this topic HPV VACCINE Aged Out No longer eligi ble based on patient's age to complete this topic MENINGOCOCCAL (Group B) VACCINE SHARED DECISION-MAKING Aged Out No longer eligible based on patient's age to complete this topic MENINGOCOCCAL GROUPS A/C/Y/W VACCINE Aged Out No longer eligible b ased on patient's age to complete this topic Procedures Procedure Name Priority Date/Time Associated Diagnosis Comments HEMOGLOBIN A1C Routine 11/15/2017 3:28 AM CDT from Last 3 Months or Most Recently Relevant to Health Maintenance Results * HEMOGLOBIN A1C (11/15/2017 3:28 AM CDT) Hemoglobin A1c 5.6 4.4 - 6.3 % 11/15/2017 7:28 AM CDT [facility] Estimated Average Glucose 114 mg/dL 11/15/2017 7:28 AM CDT [facility] Comment: HbA1c Interpretation: Treatment target values recommended by ADA and other clinical organizations should be used to evaluate metabolic control in patients. Treatment Target Values: Normal : < 5.7% Pre-diabetes: 5.7-6.4% Diabetes: Equal to or greater than 6.5% Reference: [place] Diabetes Association Standards of Care in Diabetes -2014 In patients 70 years and older consider HbA1c target range of 7.0-7.5% Reference: Diabetes Mellitus in Older People: Position Statement on behalf of the International Association of Gerontology and Geriatrics (IAGG), the Diabetes Working Democrat for Older People (EDWPOP), and the International Task Force of Experts in Diabetes. Raza Rao, et al. J [place] [employer] Directors Association. 2012 Test results diagnostic of diabetes should be repeated for confirmation. The Tosoh G8 assay for the measurement of HbA1c is a National Glycohemoglobin Standardization Program (NGSP)certified method. Results for patients with HbE disease should be interpreted with caution as this hemoglobinopathy has been shown to interfere with the Tosoh G8 assay. Whole Blood BLOOD SPECIMEN WITH EDTA / Unknown Lab Venipuncture / Unknown 11/15/2017 3:28 AM CDT 11/15/2017 3:50 AM CDT Bina Barbosa MD LAB - CHEMISTRY ORDERABLES Final Result [facility] [address] [place] [address], [facility] [phone] from Last 3 Months or Most Recently Relevant to Health Maintenance Insurance [facility] Advance Directives * Full Code (Latest Code Status on File) Date Activated Date Inactivated Comments 11/15/2017 2:40 AM 11/15/2017 8:09 PM Care Teams [employer] Division Manager Relationship Specialty Start Date End Date Makenna Gaspar MD [address] [place] [id number] PCP - General 03/17/16
--- OUTSIDE RECORDS SUMMARY | 2024-10-31 10:34 | XMS_ITS | Data Portability ---
Author Organization [place] [facility], Main Office Address [address] [place] [address] Assessment No assessment recorded. Plan of Treatment Reminders Order Date Submit Date Provider Last Modified By Organization Details Last Modified Time Details Appointments None recorded. Lab None recorded. Referral None recorded. Procedures None recorded. Surgeries endoscopy, nasal/sinus , w/ maxillary antrostomy & tissue removal (SURG) 2022 023 [email or web address] Not available 3 17:18:00 endoscopy, nasal/sinus , with frontal sinus exploration (SURG) 2022 023 [email or web address] Not available 3 17:18:01 endoscopy, nasal/sinus , w/ total ethmoidecto my (SURG) 2022 023 [email or web address] Not available 3 17:18:01 endoscopy, nasal/sinus , w/ sphenoidoto my (SURG) 2022 023 [email or web address] Not available 3 17:18:01 Imaging None recorded. Medication Orders cefdinir 300 mg capsule 2024 025 [facility], [address] [place] [address], [id number], 5 15:36:43 Medrol (Angel) 4 mg tablets in a dose pack 2024 025 [facility], [address] [place] [address], [id number], 5 15:36:45 Patient TargetsNo targets recorded. Patient Instructions Encounter Date Encounter Id Patient Instructions Last Modified By Organization Details Last Modified Time 05/19/2023 [id number] she will undergo endoscopic sinus surgery with polypectomy and postoperatively we will discuss a biologic Not available 05/19/2023 11:46:54 06/14/2023 [id number] we discussed the use of biologics but she is certain that she is not interested at this time. She will continue to use Flonase Not available 06/14/2023 16:40:26 Reason for Referral None Reported. Results Created Date Observation Date Name Description Value Unit Range Abnormal Flag Note LastModifiedBy Organization Detail LastModifiedTime 06/02/2006/02/2023 HEMOG LOBIN /NATE TOCRI T hemoglobin 13.4 g/dL 12.0-1 5.6 Not Available [facility] (Lab) [address] [place], [address], 06/02/2023 09:34:39 06/02/2006/02/2023 HEMOG LOBIN /NATE TOCRI T hematocrit 33.0 % 35.7-4 5.7 low Not Available [facility] (Lab) [address] [place], [address], 06/02/2023 09:34:39 06/02/2006/02/2023 PLATE LET COUNT platelets 219 x10'3 /uL 150-40 0 Not Available [facility] (Lab) [address] [place], [address], 06/02/2023 09:34:40 06/02/2006/02/2023 POTAS SIUM potassium 3.0 mmol/ L 3.5-5. 1 low Not Available [facility] (Lab) [address] [place], [address], 06/02/2023 09:42:23 05/18/20 23 05/14/2023 CT, sinus es, w/o contr ast No observ ation record ed. [email or web address] [facility] [address] [place], [address], 05/18/2023 15:52:10 Result Notes None recorded. Problems Name Problem SNOMED Code Status Onset Date Resolution Date Notes Provider Name and Address Organization Details Recorded Time Trigger finger of left hand 4811607546109 9107 Active 2021 Not Available [facility] 3 21:49:39 Trigger finger of right hand 7981931203611 9101 Active 2019 Not Available [facility] 3 21:49:39 Pain in finger of right hand 4352379344722 09 Active 2019 Not Available [facility] 3 21:49:39 Acquired trigger finger of left ring finger 1180496800173 09 Active 2021 Not Available [facility] 3 21:49:40 Chronic maxillary sinusitis 95315775 Active 2022 Reymundo Simmons MD [address], [place], [address] , [place] [facility] 3 11:46:08 Chronic ethmoidal sinusitis 99000322 Active 2022 Reymundo Simmons MD [address], [place], [address] , [facility] 3 11:46:16 Chronic sphenoidal sinusitis 81050030 Active 2022 Reymundo Simmons MD [address], [place], [address] , [facility] 3 11:46:23 Chronic frontal sinusitis 18851320 Active 2022 Reymundo Simmons MD [address], [place], [address] , [facility] 3 11:46:31 Polyp of nasal sinus 07900201 Active 2022 Jenn Padilla RN null, [facility] 3 17:31:57 Polyp of nasal cavity 028230069 Active 2022 Jenn Padilla RN null, [facility] 3 17:33:22 Postoperat rubia pain 735876608 Active 2022 DARIN Beltran, [place] [facility] 12:56:00 Chronic sinusitis 38497739 Active 2022 Reymundo Simmons MD [address] [facility] [address], [place], [address] , [facility] 3 16:40:03 Cough 06319028 Active 2022 DARIN Beltran, [place] [facility] 17:28:44 Problem Notes None recorded. Procedures Surgical History Date Name Laterality Status Provider Name and Address Organization Details Recorded Time 06/02/20 nasal sinus endoscopy completed DARIN Beltran [place] [facility] 06/07/2023 10:48:24 Tubal Ligation completed Not Available [facility] 09/16/2022 21:48:53 Gallbladder Surgery completed Not Available [facility] 09/16/2022 21:48:53 release of trigger finger completed Not Available [facility] 09/16/2022 21:48:53 Imaging Results Imaging Date Name Status LastModified by Organiz ation Details LastModified Time 05/14/2023 CT, sinuses, w/o contrast completed [email or web address] [facility] [address] [place], [address], 05/18/2023 15:52:10 Procedure Notes None recorded. Medical Equipment None Reported. Allergies No known drug allergies Medications Name Sig Start Date Stop Date Status Note LastModified by Organization Details LastModified Time prednisone 10 mg tablet 05/19 completed Not Available Not Available Not Available ibuprofen 800 mg tablet TAKE ONE TABLET BY MOUTH THREE TIMES DAILY, MORNING, MIDDAY & IN THE EVENING WITH FOOD NEEDED FOR PAIN active Not Available Not Available No t Available hydrocodone 5 mg-acetamin ophen 325 mg tablet 05/19 completed Not Available Not Available Not Available meloxicam 15 mg tablet TAKE ONE TABLET BY MOUTH EVERY DAY AFTER A MEAL FOR PAIN 05/19 completed Not Available Not Available Not Available metronidazo le 500 mg tablet TAKE ONE TABLET THREE TIMES DAILY AFTER MEALS FOR 5 DAYS 09/28 completed Not Available Not Available Not Available Aspir-Low 81 mg tablet,bartolo yed release 08/29 completed Not Available Not Available Not Available amlodipine 5 mg tablet TAKE ONE TABLET BY MOUTH EVERY MORNING FOR BLOOD PRESSURE active Not Available Not Available No t Available ciprofloxac in 500 mg tablet TAKE ONE TABLET TWICE DAILY AFTER MEALS FOR 5 DAYS 09/28 completed Not Available Not Available Not Available omeprazole 40 mg capsule,del ayed release TAKE ONE CAPSULE BY MOUTH EVERY DAY BEFORE A MEAL FOR STOMACH 09/28 completed Not Available Not Available Not Available amoxicillin 500 mg tablet TAKE ONE TABLET BY MOUTH EVERY 8 HOURS FOR 10 DAYS 09/28 completed Not Available Not Available Not Available prednisone 10 mg tablets in a dose pack Take 1 tab by mouth, 3 times a day for 3 daysTake 1 tab by mouth 2 times a day for 2 daysTake 1 tab by mouth once a day for 1 day 05/19 completed Not Available Not Available Not Available meloxicam 7.5 mg tablet 08/26 completed Not Available Not Available Not Available terbinafine HCl 250 mg tablet 08/26 completed Not Available Not Available Not Available amoxicillin 875 mg tablet 08/29 completed Not Available Not Available Not Available trazodone 100 mg tablet 08/26 completed Not Available Not Available Not Available dicyclomine 20 mg tablet 01/29 completed Not Available Not Available Not Available Kenalog 10 mg/mL suspension for injection In office injection administe red by the provider 08/26 completed [facility]: [phone] Not Available Not Available Not Available baclofen 10 mg tablet 08/26 completed Not Available Not Available Not Available nystatin 100,000 unit/gram topical cream 08/26 completed Not Available Not Available Not Available ranitidine 150 mg tablet 08/26 completed Not Available Not Available Not Available hydrochloro thiazide 12.5 mg capsule 01/29 completed Not Available Not Available Not Available gabapentin 300 mg capsule TAKE TWO CAPSULES BY MOUTH EVERY NIGHT AT BEDTIME FOR PAIN MANAGEMEN T active Not Available Not Available No t Available omeprazole 20 mg capsule,del ayed release 08/26 completed Not Available Not Available Not Available hydrochloro thiazide 25 mg tablet TAKE ONE TABLET BY MOUTH EVERY MORNING FOR FLUID RETENTION active Not Available Not Available No t Available methylpredn isolone 4 mg tablets in a dose pack TAKE DIRECTED active Not Available Not Available No t Available ketoconazol e 2 % topical cream active Not Available Not Available Not Available betamethaso ne dipropionat e 0.05 % topical ointment 01/29 completed Not Available Not Available Not Available cefdinir 300 mg capsule TAKE ONE CAPSULE BY MOUTH EVERY TWELVE HOURS FOR INFECTION active Not Available Not Available No t Available fluticasone propionate 50 mcg/actuati on nasal spray,suspe nsion SPRAY TWO SPRAYS IN EACH NOSTRIL EVERY DAY NEEDED 09/28 completed Not Available Not Available Not Available clotrimazol e 1 % topical cream APPLY TO THE AFFECTED AND SURROUNDI NG AREAS OF SKIN BY TOPICAL ROUTE 2 TIMES PER DAY IN THE MORNING AND EVENING FOR 4 WEEKS active Not Available Not Available No t Available amoxicillin 875 mg-potassiu m clavulanate 125 mg tablet TAKE ONE TABLET EVERY TWELVE HOURS FOR 10 DAYS 06/09 completed Not Available Not Available Not Available lidocaine (PF) 10 mg/mL (1 %) injection solution In office injection administe red by the provider 08/26 completed [facility]: [phone] Not Available Not Available Not Available calcium 600 mg (as carbonate)- vitamin D3 10 mcg (400 unit) tablet 08/26 completed Not Available Not Available Not Available Vitals Date Recorded Body mass index (BMI) Body height Pain severity - 0-10 verbal numeric rating [Score] - Reported Body weight Provider Name and Address Organization Details Last Updated DateTime 11/05/2021 28.9 kg/m2 157.48 cm 5 51337.59 g Not Available [facility] 09/16/2022 21:49:30 Date Recorded Body mass index (BMI) Body height Body weight Provider Name and Address Organization Details Last Updated DateTime 12/17/2021 29.3 kg/m2 157.48 cm 07502.78 g Not Available [facility] 09/16/2022 21:49:30 Date Recorded Body weight Body mass index (BMI) Body height Provider Name and Address Organization Details Last Updated DateTime 05/19/2023 18270.82 g 28.3 kg/m2 157.48 cm Jenn Padilla RN [facility] [employer] [facility] 05/19/2023 11:27:02 Date Recorded Body height Body mass index (BMI) Body weight Body temperature Provider Name and Address Organization Details Last Updated DateTime 06/14/2023 157.48 cm 29.2 kg/m2 38417.34 g 97.6 [degF] Jenn Padilla RN [facility] 06/14/2023 16:20:05 Date Recorded Body weight Provider Name an d Address Organization Details Last Updated DateTime 09/28/2024 29392.9 g Rukhsana Gomez [facility] 09/28/2024 15:56:30 Social History Question Answer Notes LastModified by Organizat ion Details LastModified Time Tobacco Smoking Status Current Some Day Smoker Rukhsana Patricia mckeon [facility] 09/28/2024 15:59:58 What Is Your Level Of Alcohol Consumption? Occasional [email or web address] Information not available 09/28/2024 What Was The Date Of Your Most Recent Tobacco Screening? 09/28/2024 [email or web address] Information not available 09/28/2024 Sex: Unknown Functional Status None recorded. Mental Status None recorded. Family History Relationship Description Onset Age of this Age Resolved Age Notes LastModified by Organization Details LastModified Time Unspecified Relation Cerebrovascu lar accident [email or web address] [id number] Not available 09/16/2022 21:48:55 Unspecified Relation Hypertensive disorder [id number] [id number] Not available 09/16/2022 21:48:55 Notes:NO ENT Medical History Condition Response ARTHRITIS Y HYPERTENSION Y STROKE/TIA Y Gynecological HistoryNo gynecological history recorded. Obstetrics History GPAL:G 0 P 0 0 0 0 Past Encounters Encounter ID Performer Location Encounter Start Date Encounter Closed Date Diagnosis/Indication Diagnosis SNOMED-CT Code Diagnosis ICD10 Code Diagnosis Note [id number] [facility] [address] [place] [address] 08/26/2021 00:00:00 08/26/2021 10:14:07 [id number] [facility] [place] [address] [place] [address] 10/01/2021 00:00:00 10/01/2021 15:47:58 [id number] [facility] [place] [address] [place] [address] 11/05/2021 00:00:00 11/05/2021 15:50:57 [id number] [facility] [place] [address] [place] [address] 12/17/2021 00:00:00 12/17/2021 14:24:09 [id number] MD GIOVANY [facility] [place] [address] [place] [address] 05/19/2023 11:20:12 05/19/2023 11:48:04 Chronic maxillary sinusitis 89296415 J32.0 Chronic et hmoidal sinusitis 85102786 J32.2 Chronic sp henoidal sinusitis 05045384 J32.3 Chronic fr ontal sinusitis 83182053 J32.1 [id number] MD GIOVANY [facility] [place] [address] [place] [address] 06/14/2023 16:16:44 06/14/2023 16:39:03 Chronic sinusitis 56476914 J32.9 [id number] MD GIOVANY [facility] [place] [address] [place] [address] 09/28/2024 15:44:10 10/02/2024 18:01:58 Chronic sinusitis 17375730 J32.9 Health Concerns Section Related Observation LastModified by Organization Detai ls LastModified Time None Recorded Concern Status LastModified by Organization Details LastModified Time None Recorded Advance Directives Directive None Recorded Payers Encounter Date Sequence Insurance Name Policy Number Policy Blair Covered Member ID Blair Member ID Guarantor Name 05/19/2023 1 [facility] 01/16/21 (MEDICAID REPLACEMENT - HMO) Gem Chavez [id number] [facility] Chavez 06/14/2023 1 [facility] ON OR AFTER 01/16/21 (MEDICAID REPLACEMENT - HMO) Gem Chavez [id number] [facility] Chavez 09/28/2024 1 [facility] [id number] Gem Chavez [id number] Gem Chavez Notes Date Note Type Note Provider Name and Address Organization Details Recorded Time 05/19/2023 text/html This patient was seen for chronic sinusitis and a CT was done revealing pansinusitis with polyps. She is on antibiotics and Flonase. Reymundo Simmons MD [address], [place], [address], [employer] 05/19/2023 11:47:18 06/14/2023 text/html Patient is doing extremely well following sinus surgery and polypectomy. She is enjoying her new nasal airway. Reymundo Simmons MD [address], [place], [address], [employer] 06/14/2023 16:41:00 09/28/2024 text/html this patient had a polyp surgery 1-1/2 years ago and thinks that she might have them back. Although we discussed Dupixent at the time she did not want a go that route Reymundo Simmons MD [address], [place], [address], [employer] 09/28/2024 16:06:51 OBGyn Episode No OBEpisode recorded.
== END 2024-10-31 09:50 | disposition home or self-care (01) ==
PROVIDERS: PCP Emergency Medicine; Visit Provider Otolaryngology
DX: J32.9 Chronic sinusitis, unspecified (principal); J32.4 Chronic pansinusitis
CPT/HCPCS: 70486